=== PATIENT | female | born 1980 | race Caucasian/White ===

== ENCOUNTER 2018-01-26 23:32 | Emergency (ER) | payer MEDICAID, SELFPAY ==
[2018-01-26 23:34] VITALS: BP 168/106; PULSE 89; RESP 18; TEMP 36.2; O2SAT 98; BMI 42.7
--- NOTE | 2018-01-26 23:50 | ED.DCSUM_ITS ---
- ER Visit Summary Date of Service: 01/26/18 Chief Complaint: Dental pain History of Present Illness: The patient is a 37 F who states on Saturday she began to have some left lower dental pain towards her wisdom teeth. She states today the pain was worse and she was taking ibuprofen which was helping but now is partially helping. She does not have a local physician. She does not have a local dentist. She states now she feels like her face is swelling and there is swelling around her teeth. Physical Examination: Afebrile vital signs stable Gen: Well-nourished well-developed Head: Normocephalic atraumatic Eyes: Perrl EOMI ENT: TMs clear no rhinorrhea moist mucous membranes lower left posterior most molar tenderness no gum swelling. No facial swelling Neck: Supple no lymphadenopathy no JVD nontender CVS: Regular rate rhythm no murmurs normal S1-S2 Respiratory: No distress clear to auscultation bilaterally chest nontender Abdomen: Soft nontender nondistended normal bowel sounds no masses Back: Nontender Extremity: Nontender no edema Skin: Normal color no rash Neuro: alert orientated ?3 CN II-XII intact normal strength sensation reflexes gait cerebellar Psych: Normal affect normal mood Test Results: Not indicated Emergency Department Course and Treatment: Patient will be started on Toradol as well as penicillin. Follow-up with dentistry as soon as possible Impression: 1. Odontalgia This note was generated with [employer] dictation software. It may contain incorrect words, spelling, and punctuation that were not noted in review of the chart prior to signing ED Disposition - Plan for ED Patient: Disposition: Home or Assisted Living Chief Complaint: Dental Instructions: ED Tooth Pain Prescriptions: Ketorolac [Toradol] 10 mg PO TID PRN PRN #10 tab PRN Reason: Pain Penicillin V Potassium 500 mg PO 4X/DAY #28 tab Additional Instructions: Follow-up with dentist of choice as soon as possible
[2018-01-27] MEDS: Ketorolac 10 MG Tablet PO (00:01)
[2018-01-27] MEDS: Penicillin Vk 250 MG Tablet 500 MG PO (00:01)
== END 2018-01-27 00:04 | disposition home or self-care (01) ==
LOC: ED 23:57
PROVIDERS: Emergency Provider Emergency Medicine
DX: K08.89 Other specified disorders of teeth and supporting structures (principal)
CPT/HCPCS: 99283